=== PATIENT | female | born 1940 | race Caucasian/White ===

== ENCOUNTER → 2016-08-16 | Outpatient (CLI) | payer OTHER ==
[2016-08-16 12:24] LABS: BASO % 0.5 %; BASO ABS # 0.03 K/uL (0-0.2); COMPLETE YES; EOS % 2.1 %; HEMATOCRIT 41.3 % (37-47); LYMPH % 39.1 %; LYMPH ABS # 2.26 K/uL (1.2-3.4); MEAN CORPUSCULAR HEMOGLOBIN 32.5 pg (25-34); MEAN CORPUSCULAR HGB CONC 35.4 g/dl (32-36); MEAN PLATELET VOLUME 10.3 fL (7.4-10.4); MONO % 8.8 %; NEUT % 49.5 %; PLATELET COUNT 256 K/uL (130-400); RED BLOOD COUNT 4.49 M/uL (4.2-5.4); WHITE BLOOD COUNT 5.78 K/uL (4.8-10.8)
[2016-08-16 13:53] LABS: AST/SGOT 21 U/L (15-37); BLOOD UREA NITROGEN 21 mg/dl (7-18); BUN/CREATININE RATIO 21.7 (10-20); CALCIUM 10.2 mg/dl (8.5-10.1); CARBON DIOXIDE 31 mmol/L (21-32); CHLORIDE 106 mmol/L (98-107); CREATININE 0.95 mg/dl (0.60-1.20); GLUCOSE 88 mg/dl (70-99); POTASSIUM 4.6 mmol/L (3.5-5.1); SODIUM 142 mmol/L (136-145)
[2016-08-16 14:01] LABS: ALB/GLOB RATIO 1.1 (0.9-2); ALKALINE PHOSPHATASE 70 U/L (45-117); ALT/SGPT 28 U/L (12-78); CHOLESTEROL 168 mg/dl (0-200); CHOLESTEROL/HDL RATIO 2.8; HDL CHOLESTEROL 59 mg/dl; LDL CHOLESTEROL CALCULATED 69 mg/dl; TRIGLYCERIDES 198 mg/dl (0-150); VERY LOW DENSITY LIPOPROT CALC 40 mg/dl
== END | disposition home or self-care (01) ==
LOC: C.LABBFT 09:08
PROVIDERS: ATTEND Physician Assistant Medical
DX: R60.9 Edema, unspecified (principal); R41.3 Other amnesia

== ENCOUNTER → 2016-09-13 | Outpatient (CLI) | payer OTHER ==
[2016-09-13 18:08] LABS: ALT/SGPT 24 U/L (12-78); AST/SGOT 19 U/L (15-37); BLOOD UREA NITROGEN 22 mg/dl (7-18); BUN/CREATININE RATIO 25.4 (10-20); CARBON DIOXIDE 27 mmol/L (21-32); CHLORIDE 108 mmol/L (98-107); CREATININE 0.88 mg/dl (0.60-1.20); GLUCOSE 96 mg/dl (70-99); POTASSIUM 4.1 mmol/L (3.5-5.1); SODIUM 141 mmol/L (136-145)
[2016-09-13 18:10] LABS: ALB/GLOB RATIO 1.2 (0.9-2); ALKALINE PHOSPHATASE 67 U/L (45-117)
== END | disposition home or self-care (01) ==
LOC: C.LABBFT 11:41
PROVIDERS: ATTEND Physician Assistant Medical
DX: R79.9 Abnormal finding of blood chemistry, unspecified (principal)

== ENCOUNTER → 2017-11-21 | Outpatient (CLI) | payer OTHER ==
[2017-11-21 17:27] LABS: BASO % 0.5 %; BASO ABS # 0.03 K/uL (0-0.2); EOS % 2.3 %; EOS ABS # 0.14 K/uL (0-0.5); HEMATOCRIT 40.5 % (37-47); HEMOGLOBIN 13.9 g/dL (12.0-16.0); IG# 0.01 K/uL (0.00-0.02); LYMPH % 36.9 %; MEAN CELL VOLUME 91.4 fL (80-100); MEAN CORPUSCULAR HEMOGLOBIN 31.4 pg (25-34); MEAN CORPUSCULAR HGB CONC 34.3 g/dl (32-36); MEAN PLATELET VOLUME 10.1 fL (7.4-10.4); MONO % 9.2 %; MONO ABS # 0.55 K/uL (0.11-0.59); NEUT % 50.9 %; NEUT ABS # 3.04 K/uL (1.4-6.5); PLATELET COUNT 273 K/uL (130-400); RED CELL DISTRIBUTION WIDTH CV 12.9 % (11.5-14.5); RED CELL DISTRIBUTION WIDTH SD 43.3 fL (36.4-46.3); WHITE BLOOD COUNT 5.97 K/uL (4.8-10.8)
[2017-11-21 18:06] LABS: ALBUMIN 4.1 gm/dl (3.4-5.0); ALKALINE PHOSPHATASE 76 U/L (45-117); ALT/SGPT 29 U/L (12-78); AST/SGOT 22 U/L (15-37); BLOOD UREA NITROGEN 16 mg/dl (7-18); CALCIUM 9.2 mg/dl (8.5-10.1); CARBON DIOXIDE 30 mmol/L (21-32); CHOLESTEROL 141 mg/dl (0-200); CREATININE 0.96 mg/dl (0.60-1.20); GLUCOSE 85 mg/dl (70-99); LDL CHOLESTEROL CALCULATED 39 mg/dl; POTASSIUM 4.2 mmol/L (3.5-5.1); SODIUM 139 mmol/L (136-145); TOTAL PROTEIN 7.9 gm/dl (6.4-8.2)
== END | disposition home or self-care (01) ==
LOC: C.LABBFT 15:17
PROVIDERS: ATTEND Internal Medicine
DX: E78.5 Hyperlipidemia, unspecified (principal); L65.9 Nonscarring hair loss, unspecified

== ENCOUNTER 2023-12-16 15:55 | Inpatient (IN) ==
--- NOTE | 2023-12-16 17:28 | XRay Report ---
XR chest 1V not portable CLINICAL HISTORY: Chest pain, nonspecific COMPARISON STUDY: No previous studies for comparison. FINDINGS: Lung volumes are normal. There is no consolidation. 1.4 cm left suprahilar nodular density is present. Linear left basilar densities favor atelectasis or scarring. There is no pneumothorax or pleural effusion. Cardiac size is normal. Mediastinal contours are normal. There is no evidence for p ulmonary edema. IMPRESSION: 1. No acute cardiopulmonary findings. 2. 1.4 cm left suprahilar nodular density. This is likely artifactual. A pulmonary nodule could appea r similar. Nonemergent chest CT is recommended. ACT 112: Positive. There are findings on this exam that require communication between the performing entity and the patient following Patient Test Result Information Act ([place] Act 112) guidelines. Electronically signed by: Richmond Feliz M.D. 12/16/2023 5:25 PM
[2023-12-16 17:30] LABS: Basophils # (auto) 0.04 K/uL (0.00-0.20); Basophils % (auto) 0.6 %; Eosinophils % (auto) 1.5 %; Hematocrit (blood only) 38.9 % (37.0-47.0); Hemoglobin 13.7 g/dl (12.0-16.0); Immature Granulocytes # (auto) 0.02 K/uL (0.01-0.20); Immature Granulocytes % (auto) 0.3 %; Lymphocytes # (auto) 2.09 K/uL (1.20-3.40); Lymphocytes % (auto) 30.9 %; Mean Corpuscular Hemoglobin 31.6 pg (25.0-34.0); Mean Corpuscular Hgb Conc 35.2 g/dL (32.0-36.0); Mean Corpuscular Volume 89.6 fL (80.0-100.0); Mean Platelet Volume 9.4 fL (9.4-12.4); Monocytes # (auto) 1.03 K/uL (0.11-0.59); Monocytes % (auto) 15.2 %; Neutrophils # (auto) 3.49 K/uL (1.40-6.50); Neutrophils % (auto) 51.5 %; Platelet Count 280 K/uL (130-400); RDW Coefficient of Variation 12.1 % (11.5-14.5); RDW Standard Deviation 39.6 fL (36.4-46.3); Red Blood Count 4.34 M/uL (4.20-5.40); White Blood Count 6.77 K/ul (4.8-10.8)
[2023-12-16 17:34] LABS: Albumin Globulin Ratio 1.3 (0.9-2); Albumin Level 4.5 gm/dl (3.4-5.0); BUN Creatinine Ratio 22.4 (10-20); Bilirubin,Total 0.5 mg/dl (0.2-1.0); Calcium 10.2 mg/dl (8.6-10.3); Creatinine Clr Calc Pharmacy 40.5 ml/min; Est GFR (African American) 61.8 ml/min; Est GFR (Non-African American) 53.3 ml/min; Globulin 3.4 gm/dl (2.5-4.0); Total Protein 7.9 gm/dl (6.0-8.3)
[2023-12-16 17:45] LABS: Partial Thromboplastin Time 26 Seconds (21-31); Prothrombin Time 10.6 Seconds (9.0-12.0)
[2023-12-16 17:56] LABS: Adenovirus PCR Not Detected (NotDetected); Bordetella parapertussis PCR Not Detected (NotDetected); Bordetella pertussis PCR Not Detected (NotDetected); Chlamydia pneumoniae PCR Not Detected (NotDetected); Coronavirus 229E PCR Not Detected (NotDetected); Coronavirus CoV-2 (COVID19)PCR Not Detected (NotDetected); Coronavirus HKU1 PCR Not Detected (NotDetected); Coronavirus NL63 PCR Not Detected (NotDetected); Coronavirus OC43PCR Not Detected (NotDetected); Human Metapneumovirus PCR Not Detected (NotDetected); Influenza A PCR Not Detected (NotDetected); Influenza B PCR Not Detected (NotDetected); Mycoplasma pneumoniae PCR Not Detected (NotDetected); Parainfluenza Virus 1 PCR Not Detected (NotDetected); Parainfluenza Virus 2 PCR Not Detected (NotDetected); Parainfluenza Virus 3 PCR Not Detected (NotDetected); Parainfluenza Virus 4 PCR Not Detected (NotDetected); Respiratory Syncytial VirusPCR Not Detected (NotDetected); Rhinovirus/Enterovirus PCR Not Detected (NotDetected)
[2023-12-16 18:10] LABS: D Dimer 11270 ug/L FEU (0-500)
[2023-12-16] MEDS: OPTIRAY 320 125ml IV ONE (18:34)
--- NOTE | 2023-12-16 18:46 | CT Scan Report ---
CT OF THE HEAD WITHOUT CONTRAST CLINICAL HISTORY: Headache. COMPARISON STUDY: MRI of the brain November 02, 2021. TECHNIQUE: Helical axial images of the head were obtained without IV contrast. Automated exposure con trol was utilized for the study. A dose lowering technique was utilized adhering to the principles o f ALARA. FINDINGS: No acute intracranial hemorrhage, midline shift or mass effect is present. White matter hyp odensity suggests small vessel disease. There is mild atrophy. The ventricular system is unremarkable . The basal cisterns are patent. No extra-axial collections are present. There are no findings to sug gest acute dural sinus thrombosis or acute territorial infarct. No significant calvarial abnormalitie s are present. Visualized portions of the sinuses and mastoid air cells are clear. IMPRESSION: No acute intracranial findings. ACT 112: Negative or not required by law. Electronically signed by: Richmond Feliz M.D. 12/16/2023 6:44 PM
[2023-12-16] MEDS ORDERED: Heparin IV Adult Wt-Based Standard w/ INITIAL Bolus Protocol IV STA (18:47)
--- NOTE | 2023-12-16 18:55 | CT Scan Report ---
CT ANGIOGRAPHY OF THE CHEST, PULMONARY EMBOLUS PROTOCOL CLINICAL HISTORY: Elevated d-dimer. Evaluate for pulmonary embolus. COMPARISON STUDY: Chest radiograph performed earlier today. TECHNIQUE: Following IV administration of 118 mL of Optiray, helical axial images of the chest were o btained utilizing the pulmonary embolus protocol. Maximal intensity projections and sagittal and cor onal reformats were viewed on an independent 3D workstation. IV contrast was administered without co mplication. Automated exposure control was utilized for the study. A dose lowering technique was ut ilized adhering to the principles of ALARA. CT DOSE: 1371.66 mGy.cm FINDINGS: Numerous pulmonary emboli are noted, including a small saddle pulmonary embolus. Overall, embolus burden is moderate with multiple lobar, segmental and subsegmental pulmonary emboli. There is no definite CT evidence for right heart strain. No pericardial effusion. There is no thoracic lympha denopathy. A moderate sized hiatal hernia is present. No pulmonary infarct is present. Linear densiti es within the lungs represent atelectasis. There is no consolidation. No pneumothorax or pleural effu jose l is present. No acute fractures within the bony thorax are present. Extensive anterior aspect pamela nosis of the thoracic spine is incidentally noted. The possible left lung nodule on chest radiograph performed earlier today was artifactual. Visualized portions of the upper abdomen are unremarkable. IMPRESSION: 1. Numerous bilateral pulmonary emboli, including a small saddle pulmonary embolus. Overall, moderate embolus burden. No definite CT evidence for right heart strain. No pulmonary infarct. 2. No suspicious pulmonary nodules. The possible left lung nodule on chest radiograph was artifactual . 3. Moderate sized hiatal hernia. ACT 112: Negative or not required by law. Electronically signed by: Richmond Feliz M.D. 12/16/2023 6:53 PM
[2023-12-16] MEDS ORDERED: HEPARIN SOD (PORCINE) 1000 UNIT/ML IV ONE (19:03)
--- NOTE | 2023-12-16 19:38 | History & Physical Report ---
Date of Service December 16, 2023 Assessment & Plan (1) Acute saddle pulmonary embolism: Plan: ER discussed with ICU and declined ICU admission IV heparin standard dose with bolus TTE, BNP, troponin, US venous doppler b/l LE (2) History of DVT (deep vein thrombosis): Plan: 2019 suspected due to prolonged sitting with painting Plan VTE Prophylaxis - IV heparin Diet - regular Disposition - admit to PCU Admission and Anticipated Discharge Date Admission Date: December 16, 2023 History of Present Illness Chief Complaint: Chest pressure Primary Care Provider: Romina Palomo MD Carrie Whyte is an 83 year old female who presents to the ER with chest pressure. She reports symptoms started with a flu like illness starting approximately 2 weeks ago with whole body aches, headache and nausea. She was tested for COVID and it was negative. Started having chest pressure today which prompted her to come to the ER. She notes a constant chest pressure with intermittent "flick" sharp pain just left off the center of her sterum. No worse on exertion, inspiration, position. She denies any shortness of breath, palpitations, presyncope, diaphoresis. She notes a prior history of DVT in 2019 suspected from prolonged sitting while painting. She was treated with Xarelto but since this was her first event she was taken off Xarelto in July. Her mother and sister have both had DVT/PEs. She is unable to confirm her medications at this time. Allergies Allergy/AdvReac Type Severity Reaction Status Date / Time cephalexin [From Keflex] Allergy Hives Verified 08/02/23 09:56 Home Medications Medication Instructions Recorded Confirmed Type multivitamin 1 tab PO QAM 12/23/18 09/26/23 History omega-3 acid ethyl esters 1 gram 1 cap PO BID 02/01/19 09/26/23 History capsule timolol maleate 0.25 % eye drops 1 drops ophthalmic (eye) Q12H 02/01/19 09/26/23 History acetaminophen 650 mg 650 mg PO Q12H PRN Pain 04/03/19 09/26/23 History tablet,extended release (Tylenol Arthritis Pain) [employer] nutrition pack PO DAILY 10/16/21 09/26/23 History cholecalciferol (vitamin D3) 25 25 mcg PO DAILY #30 caps 10/23/21 09/26/23 Rx mcg (1,000 unit) capsule alendronate 70 mg tablet (Fosamax) 70 mg PO ONCE 7 days #12 tabs 01/25/23 09/26/23 Rx donepezil 10 mg tablet 10 mg PO DAILY #90 tabs 05/31/23 09/26/23 Rx aspirin 81 mg capsule 81 mg PO DAILY PRN 09/26/23 09/26/23 History omeprazole 20 mg capsule,delayed 20 mg PO DAILY PRN 09/26/23 History release Past Med/Surg History Problem List Acute saddle pulmonary embolism Degenerative arthritis of knee, bilateral Arthritis of right knee History of DVT (deep vein thrombosis) Osteoporosis Vitamin D deficiency Memory loss Urinary incontinence GERD (gastroesophageal reflux disease) Medicare annual wellness visit, initial MCI (mild cognitive impairment) Medical History History of benign ovarian tumor Osteoarthritis Positive colorectal cancer screening using Cologuard test TMJ click Glaucoma Seasonal depression History of rheumatic fever as a child History of TIA (transient ischemic attack) 2012, 2013 DVT (deep venous thrombosis) RLE - DX 01/2019 - on xarelto - pt is an artist, 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 Surgical History S/P cataract surgery History of breast biopsy History of tonsillectomy History of total abdominal hysterectomy and bilateral salpingo-oophorectomy History of esophagogastroduodenoscopy (EGD) History of cardiac radiofrequency ablation [facility]ACH[facility]CARDIA [place] [facility] [place] - DOES NOT FOLLOW W/ CARDIOLOGY Family History Brother Myocardial infarction Sister Deep vein thrombosis Mother Deep vein thrombosis Denies family history of Ovarian cancer Prostate cancer Breast cancer Lung cancer Colorectal cancer Social History Smoking Status: Never smoker Second Hand Exposure: No; Do You Dip or Chew Tobacco: No; Tobacco Cessation Education Requested by Patient: No Hx Alcohol Use: No Hx Substance Use: No Preferred Language: Mauritanian Communication Ability: Effective Visual Impairment: No Limitations Hearing Ability: Normal Pin Sticker Required: No Beliefs That Will Affect Care: None marital status: / Current Living Situation: Other Current Living Situation Comment: lives in an apartment at [facility] current occupational status: retired Other Information That Helps Us Care for You: No Feels Safe at Home: Yes Safety Concerns: Feels Safe At This Time Safety Concerns Comment: Lives at [facility] in [place] Childhood Exposure to Second-Hand Smoke: Yes Diet: regular caffeine: Yes Dental Care, Regularly: Yes Physical Activity Frequency: Does not Exercise Seatbelt Use: always Assistive Devices: Cane, Glasses and Walker Review of Systems Review of Systems: All systems reviewed & are unremarkable except as noted in HPI & below Physical Exam Constitutional: WD/WN, vitals as above ENMT: external ear and nose normal, oropharynx normal Respiratory: normal respiratory effort, lungs clear to auscultation Cardiovascular: RRR, no murmur, no edema Gastrointestinal (Abdomen): normal bowel sounds, soft, nontender, no hepatosplenomegaly Musculoskeletal: no cyanosis or clubbing, extremities motor strength 5/5 Skin: no rashes, warm and dry Neurologic: moves all extremities and awake; not confused Psychiatric: A+Ox3, euthymic affect Results & Data Results & Data Vital Signs (Past 12 Hours) Vital Signs Temp Pulse Pulse Resp BP BP Pulse Ox 12/16/23 19:00 91 H 22 137/85 97 12/16/23 18:02 91 H 12/16/23 17:51 88 17 96 12/16/23 17:51 96 H 14 154/85 H 97 12/16/23 15:58 36.5 C 120 H 16 132/84 97 O2 Del Method 12/16/23 19:00 Room Air 12/16/23 18:02 12/16/23 17:51 Room Air 12/16/23 17:51 Room Air 12/16/23 15:58 Room Air Laboratory Results Abnormal lab results 12/16/23 Range/Units 16:45 [place] # (Auto) 1.03 H (0.11-0.59) K/uL D-Dimer [id number] H* (0-500) ug/L FEU BUN/Creatinine Ratio 22.4 H (10-20) Diagnostic Findings CT OF THE HEAD WITHOUT CONTRAST CLINICAL HISTORY: Headache. COMPARISON STUDY: MRI of the brain November 02, 2021. TECHNIQUE: Helical axial images of the head were obtained without IV contrast. Automated exposure control was utilized for the study. A dose lowering technique was utilized adhering to the principles of ALARA. FINDINGS: No acute intracranial hemorrhage, midline shift or mass effect is present. White matter hypodensity suggests small vessel disease. There is mild atrophy. The ventricular system is unremarkable. The basal cisterns are patent. No extra-axial collections are present. There are no findings to suggest acute dural sinus thrombosis or acute territorial infarct. No significant calvarial abnormalities are present. Visualized portions of the sinuses and mastoid air cells are clear. IMPRESSION: No acute intracranial findings. CT ANGIOGRAPHY OF THE CHEST, PULMONARY EMBOLUS PROTOCOL CLINICAL HISTORY: Elevated d-dimer. Evaluate for pulmonary embolus. COMPARISON STUDY: Chest radiograph performed earlier today. TECHNIQUE: Following IV administration of 118 mL of Optiray, helical axial images of the chest were obtained utilizing the pulmonary embolus protocol. Maximal intensity projections and sagittal and coronal reformats were viewed on an independent 3D workstation. IV contrast was administered without complication. Automated exposure control was utilized for the study. A dose lowering technique was utilized adhering to the principles of ALARA. CT DOSE: 1371.66 mGy.cm FINDINGS: Numerous pulmonary emboli are noted, including a small saddle pulmonary embolus. Overall, embolus burden is moderate with multiple lobar, segmental and subsegmental pulmonary emboli. There is no definite CT evidence for right heart strain. No pericardial effusion. There is no thoracic lymphadenopathy. A moderate sized hiatal hernia is present. No pulmonary infarct is present. Linear densities within the lungs represent atelectasis. There is no consolidation. No pneumothorax or pleural effusion is present. No acute fractures within the bony thorax are present. Extensive anterior aspect stenosis of the thoracic spine is incidentally noted. The possible left lung nodule on chest radiograph performed earlier today was artifactual. Visualized portions of the upper abdomen are unremarkable. IMPRESSION: 1. Numerous bilateral pulmonary emboli, including a small saddle pulmonary embolus. Overall, moderate embolus burden. No definite CT evidence for right heart strain. No pulmonary infarct. 2. No suspicious pulmonary nodules. The possible left lung nodule on chest radiograph was artifactual. 3. Moderate sized hiatal hernia. Medications Administered ER Medications Given: Heparin IV bolus and drip ECG Rate (beats per minute): 102 Rhythm: sinus tachycardia Findings: no acute ischemic change Comparison ECG Date: no prior available Code Status & VTE Plan Code Status Full VTE Prophylaxis Plan VTE Prophylaxis will be ordered: Yes PG Care Time/CCT Total # of Minutes Spent Total Time Spent with Patient: Total time spent is greater than 50% in coordination of care (as documented) at patient's floor/unit and/or counseling patient: Coding Level of Care Code 33178 INT INP/OBS CARE MIN Diagnoses Acute saddle pulmonary embolism I26.92 History of DVT (deep vein thrombosis) Z86.718
[2023-12-16] MEDS: HEPARIN SODIUM/DEXTROSE 25,000 UNITS/500 ML BAG IV SCH (20:17)
[2023-12-16] MEDS: HEPARIN SOD (PORCINE) 1000 UNIT/ML IV ONE (20:17)
--- NOTE | 2023-12-16 23:10 | Emergency Department Note ---
Impression & Plan Acute saddle pulmonary embolism ED Provider Note CHIEF COMPLAINT: Left-sided chest discomfort, flulike symptoms HISTORY OF PRESENT ILLNESS: This 83-year-old female patient past medical history of GERD, mild cognitive impairment, DVT presents to the emergency department with complaints of flulike illness. Patient states she had a headache, some sinus pressure and bodyaches. She believes that the body aches have largely resolved and the headache is improving. The patient complains of some left-sided chest discomfort and short "zings." She denies any significant shortness of breath or fevers. She states she was tested for COVID 2 days ago at the [facility] and was tested negative. She has not had any vomiting or diarrhea. She denies any urinary symptoms. REVIEW OF SYSTEMS: A review of systems was performed with positives and pertinent negatives listed in the history of present illness. 10 systems were reviewed and are otherwise negative. ALLERGIES: see below MEDICATIONS: see below PMH: see below SOCIAL HISTORY: see below DDx: Viral illness such as COVID or UTI, pneumonia, intracranial hemorrhage, intracranial mass, dehydration, electrolyte abnormality, PE among others. PHYSICAL EXAM: Vital signs reviewed. General: Well-appearing 83-year-old female, in no significant distress. HEENT: No scleral icterus, PERRLA, neck supple. moist mucous membranes. Cardiovascular: Regular rate and rhythm, no extra sounds. Systolic ejection murmur. Pulmonary: Clear to auscultation bilaterally, normal work of breathing. Abdomen: Soft, nontender, nondistended, positive bowel sounds. Musculoskeletal: Atraumatic, no peripheral edema. Nontender to palpation over the anterior chest wall. Neurologic: Patient awake alert and oriented x 3, speech is clear Skin: Warm, dry, no rash EMERGENCY DEPARTMENT COURSE/MDM: This patient was evaluated and appeared to be in no significant distress. IV access was obtained and laboratory work was drawn. The patient was placed on the radiation monitor and noted to be in a normal sinus rhythm. Heart rate triage was slightly elevated has improved rest. Laboratory work has been ordered at triage, results are significant for elevated D dimer. Chest x-ray is significant for 1.4 cm left suprahilar nodular density. CT and the chest was performed and reveals numerous bilateral pulmonary and including a small saddle PE. No evidence for right heart strain. Heparin was initiated. US BLE was performed and significant for bilateral DVT, left greater than right. The case was discussed with the hospital service who requested consultation with the critical care team. ANJELICA Juares was contacted as first call, who was made aware of the patient's case and felt PCU level was appropriate given the pt's stability and minimal symptoms. Hospital service was made aware of the recommendation and Dr. Boland has accepted the pt for admission. IV heparin gtt has been initiated, pt updated on the plan and agreed. MONITORING: An order for cardiac monitoring was placed and the patient is noted to be in a normal sinus rhythm at 94 beats per minute. RADIOLOGY: chest x-ray to my interpretation reveals no evidence of focal lung consolidation or failure. Otherwise see radiology's over read. CT scan of the chest: IMPRESSION: 1. Numerous bilateral pulmonary emboli, including a small saddle pulmonary embolus. Overall, moderate embolus burden. No definite CT evidence for right heart strain. No pulmonary infarct. 2. No suspicious pulmonary nodules. The possible left lung nodule on chest radiograph was artifactual. 3. Moderate sized hiatal hernia. CT scan of the head per radiology reveals no evidence of acute intracranial abnormality. EKG: to my interpretation reveals a sinus tachycardia at 102 bpm. QTc of 427. Normal ST segments. No PVC, no PAC. DISPOSITION: Admission I have personally spent 40 minutes of critical care time in the direct management of this patient. This was a life/limb threatening event. This 40 minutes is in excess of all separately billable procedures. Past Med/Surg History Problem List (Updated 12/22/23 @ 05:38 by Mari Ornelas MD) Acute right flank pain (Acute) Embolism, pulmonary with infarction (Acute) Acute saddle pulmonary embolism (Acute) Degenerative arthritis of knee, bilateral Arthritis of right knee History of DVT (deep vein thrombosis) Osteoporosis Vitamin D deficiency Memory loss Urinary incontinence GERD (gastroesophageal reflux disease) Medicare annual wellness visit, initial MCI (mild cognitive impairment) Medical History History of benign ovarian tumor Osteoarthritis Positive colorectal cancer screening using Cologuard test TMJ click Glaucoma Seasonal depression History of rheumatic fever as a child History of TIA (transient ischemic attack) 2012, 2013 DVT (deep venous thrombosis) RLE - DX 01/2019 - on xarelto - pt is an artist, 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 Surgical History S/P cataract surgery History of breast biopsy History of tonsillectomy History of total abdominal hysterectomy and bilateral salpingo-oophorectomy History of esophagogastroduodenoscopy (EGD) History of cardiac radiofrequency ablation TACHYCARDIA - [facility] [place] - 2000 - DOES NOT FOLLOW W/ CARDIOLOGY Family History Brother Myocardial infarction Sister Deep vein thrombosis Mother Deep vein thrombosis Denies family history of Ovarian cancer Prostate cancer Breast cancer Lung cancer Colorectal cancer Social History Smoking Status: Never smoker Second Hand Exposure: No; Do You Dip or Chew Tobacco: No; Hx Alcohol Use: No Hx Substance Use: No Preferred Language: Cambodian Communication Ability: Effective Visual Impairment: No Limitations Hearing Ability: Normal Track Manager Required: No Beliefs That Will Affect Care: None marital status: / Current Living Situation: Other Current Living Situation Comment: lives in an apartment at [facility] current occupational status: retired Feels Safe at Home: Yes Safety Concerns Comment: Lives at [facility] in [place] Childhood Exposure to Second-Hand Smoke: Yes Diet: regular caffeine: Yes Dental Care, Regularly: Yes Physical Activity Frequency: Does not Exercise Seatbelt Use: always Assistive Devices: Cane and Walker Allergies Allergies Allergy/AdvReac Type Severity Reaction Status Date / Time cephalexin [From Keflex] Allergy Intermediate Hives Verified 12/19/23 19:16 Home Meds Home Medications Medication Instructions Recorded Confirmed multivitamin 1 tab PO QAM 12/23/18 12/19/23 omega-3 acid ethyl esters 1 gram 1 cap PO BID 02/01/19 12/19/23 capsule timolol maleate 0.25 % eye drops 1 drops ophthalmic (eye) Q12H 02/01/19 12/19/23 acetaminophen 650 mg 650 mg PO Q12H PRN Pain 04/03/19 12/19/23 tablet,extended release (Tylenol Arthritis Pain) [employer] nutrition pack 1 dose PO DAILY 10/16/21 12/19/23 aspirin 81 mg capsule 81 mg PO DAILY PRN NEEDED PER PT 09/26/23 12/19/23 omeprazole 20 mg capsule,delayed 20 mg PO DAILY 09/26/23 12/19/23 release Previous Rx's Medication Instructions Recorded cholecalciferol (vitamin D3) 25 25 mcg PO DAILY #30 caps 10/23/21 mcg (1,000 unit) capsule donepezil 10 mg tablet 10 mg PO DAILY #90 tabs 05/31/23 apixaban 5 mg tablet (Eliquis) 5 mg PO UD #60 tabs 12/17/23 Results & Data (ED) Vital Signs Vital Signs - 24 hr 12/16/23 15:58 12/16/23 17:51 12/16/23 17:51 Temperature 36.5 C Temperature Source Temporal Artery Scan Pulse Rate 120 H 88 Pulse Rate [Apical] 96 H Pulse Rate from SpO2 Sensor Respiratory Rate 16 14 17 Respiratory Effort / Characteristics Non-Labored Spontaneous Non-Labored Spontaneous Respiratory Depth Normal Normal Respiratory Pattern Regular Blood Pressure 132/84 Blood Pressure [Right Arm] 154/85 H Blood Pressure Mean 100 Blood Pressure Mean [Right Arm] 108 Blood Pressure Position [Right Arm] Pulse Oximetry 97 97 96 Oxygen Delivery Method Room Air Room Air Room Air Sepsis Recent Fever Within 48 Hours No Sepsis New/Unexplained Change in Mental Status No Sepsis Action Taken by Nursing No Action Required 12/16/23 18:00 12/16/23 18:00 12/16/23 18:02 Temperature Temperature Source Pulse Rate 91 H Pulse Rate [Apical] Pulse Rate from SpO2 Sensor Respiratory Rate Respiratory Effort / Characteristics Respiratory Depth Respiratory Pattern Blood Pressure 136/78 136/78 Blood Pressure [Right Arm] Blood Pressure Mean 92 92 Blood Pressure Mean [Right Arm] Blood Pressure Position [Right Arm] Pulse Oximetry Oxygen Delivery Method Sepsis Recent Fever Within 48 Hours Sepsis New/Unexplained Change in Mental Status Sepsis Action Taken by Nursing 12/16/23 18:03 12/16/23 18:15 12/16/23 18:24 Temperature Temperature Source Pulse Rate 94 H 92 H 94 H Pulse Rate [Apical] Pulse Rate from SpO2 Sensor 94 H 94 H Respiratory Rate 21 24 25 H Respiratory Effort / Characteristics Respiratory Depth Respiratory Pattern Blood Pressure Blood Pressure [Right Arm] Blood Pressure Mean Blood Pressure Mean [Right Arm] Blood Pressure Position [Right Arm] Pulse Oximetry 97 97 Oxygen Delivery Method Sepsis Recent Fever Within 48 Hours Sepsis New/Unexplained Change in Mental Status Sepsis Action Taken by Nursing 12/16/23 18:27 12/16/23 18:40 12/16/23 18:40 Temperature Temperature Source Pulse Rate 92 H Pulse Rate [Apical] Pulse Rate from SpO2 Sensor Respiratory Rate 22 Respiratory Effort / Characteristics Respiratory Depth Respiratory Pattern Blood Pressure 137/73 137/73 Blood Pressure [Right Arm] Blood Pressure Mean 87 87 Blood Pressure Mean [Right Arm] Blood Pressure Position [Right Arm] Pulse Oximetry Oxygen Delivery Method Sepsis Recent Fever Within 48 Hours Sepsis New/Unexplained Change in Mental Status Sepsis Action Taken by Nursing 12/16/23 18:40 12/16/23 18:40 12/16/23 18:40 Temperature Temperature Source Pulse Rate Pulse Rate [Apical] Pulse Rate from SpO2 Sensor Respiratory Rate Respiratory Effort / Characteristics Respiratory Depth Respiratory Pattern Blood Pressure 137/73 137/73 137/73 Blood Pressure [Right Arm] Blood Pressure Mean 87 87 87 Blood Pressure Mean [Right Arm] Blood Pressure Position [Right Arm] Pulse Oximetry Oxygen Delivery Method Sepsis Recent Fever Within 48 Hours Sepsis New/Unexplained Change in Mental Status Sepsis Action Taken by Nursing 12/16/23 18:42 12/16/23 18:51 12/16/23 19:00 Temperature Temperature Source Pulse Rate 89 82 Pulse Rate [Apical] 91 H Pulse Rate from SpO2 Sensor 89 82 Respiratory Rate 19 14 22 Respiratory Effort / Characteristics Non-Labored Spontaneous Respiratory Depth Normal Respiratory Pattern Regular Blood Pressure Blood Pressure [Right Arm] 137/85 Blood Pressure Mean Blood Pressure Mean [Right Arm] 102 Blood Pressure Position [Right Arm] Semi-fowlers Pulse Oximetry 97 96 97 Oxygen Delivery Method Room Air Sepsis Recent Fever Within 48 Hours Sepsis New/Unexplained Change in Mental Status Sepsis Action Taken by Nursing 12/16/23 19:15 Temperature Temperature Source Pulse Rate 86 Pulse Rate [Apical] Pulse Rate from SpO2 Sensor 85 Respiratory Rate 13 Respiratory Effort / Characteristics Respiratory Depth Respiratory Pattern Blood Pressure Blood Pressure [Right Arm] Blood Pressure Mean Blood Pressure Mean [Right Arm] Blood Pressure Position [Right Arm] Pulse Oximetry 99 Oxygen Delivery Method Sepsis Recent Fever Within 48 Hours Sepsis New/Unexplained Change in Mental Status Sepsis Action Taken by Custodial Medications Current Medication List: was personally reviewed by me Laboratory Data Attestation: I reviewed the patient's lab results. 12/18/23 06:13 12/18/23 06:13 Lab Results 12/16/23 12/16/23 Range/Units 16:45 19:36 WBC 6.77 (4.8-10.8) K/ul RBC 4.34 (4.20-5.40) M/uL Hgb 13.7 (12.0-16.0) g/dl Hct 38.9 (37.0-47.0) % MCV 89.6 (80.0-100.0) fL MCH 31.6 (25.0-34.0) pg MCHC 35.2 (32.0-36.0) g/dL RDW Std Deviation 39.6 (36.4-46.3) fL RDW Coeff of Dimitry 12.1 (11.5-14.5) % Plt Count 280 (130-400) K/uL MPV 9.4 (9.4-12.4) fL Immature Gran % (Auto) 0.3 % Neut % (Auto) 51.5 % Lymph % (Auto) 30.9 % Wells % (Auto) 15.2 % Eos % (Auto) 1.5 % Baso % (Auto) 0.6 % Neut # (Auto) 3.49 (1.40-6.50) K/uL Lymph # (Auto) 2.09 (1.20-3.40) K/uL Wells # (Auto) 1.03 H (0.11-0.59) K/uL Eos # (Auto) 0.10 (0.00-0.50) K/uL Baso # (Auto) 0.04 (0.00-0.20) K/uL Immature Gran # (Auto) 0.02 (0.01-0.20) K/uL PT 10.6 (9.0-12.0) Seconds INR 1.0 (0.9-1.1) APTT 26 (21-31) Seconds PTT Ratio 1.0 D-Dimer 43965 H* (0-500) ug/L FEU Sodium 139 (136-145) mmol/L Potassium 4.0 (3.5-5.1) mmol/L Chloride 101 (98-107) mmol/L Carbon Dioxide 28 (21-32) mmol/L Anion Gap 10 (3-11) BUN 22 (6-23) mg/dl Creatinine 0.98 (0.6-1.2) mg/dl Est Cr Clr Drug Dosing 40.5 ml/min Est GFR ( Amer) 61.8 ml/min Est GFR (Non-Af Amer) 53.3 ml/min BUN/Creatinine Ratio 22.4 H (10-20) Glucose 94 (70-99(Fasting)) mg/dl Calcium 10.2 (8.6-10.3) mg/dl Total Bilirubin 0.5 (0.2-1.0) mg/dl AST 21 (13-39) U/L ALT 14 (7-52) U/L Alkaline Phosphatase 71 (34-104) U/L Troponin I High Sens 6.0 6.6 (0-14) pg/ml Total Protein 7.9 (6.0-8.3) gm/dl Albumin 4.5 (3.4-5.0) gm/dl Globulin 3.4 (2.5-4.0) gm/dl Albumin/Globulin Ratio 1.3 (0.9-2) Adenovirus (PCR) Not Detected (NotDetected) B. pertussis DNA (PCR) Not Detected (NotDetected) B.parapertussis DNA PCR Not Detected (NotDetected) Lyme Disease Screen Negative (Negative) C. pneumoniae DNA (PCR) Not Detected (NotDetected) Coronavirus OC43 (PCR) Not Detected (NotDetected) Coronavirus HKU1 (PCR) Not Detected (NotDetected) Coronavirus 229E (PCR) Not Detected (NotDetected) SARS-CoV-2 (PCR) Not Detected (NotDetected) Coronavirus NL63 (PCR) Not Detected (NotDetected) Human Metapneumovir PCR Not Detected (NotDetected) Influenza Type A (PCR) Not Detected (NotDetected) Influenza Type B (PCR) Not Detected (NotDetected) M. pneumoniae (PCR) Not Detected (NotDetected) Parainfluenza 1 (PCR) Not Detected (NotDetected) Parainfluenza 2 (PCR) Not Detected (NotDetected) Parainfluenza 3 (PCR) Not Detected (NotDetected) Parainfluenza 4 (PCR) Not Detected (NotDetected) RSV (PCR) Not Detected (NotDetected) Entero/Rhino (PCR) Not Detected (NotDetected) Administered Medications Discontinued Medications Apixaban (Apixaban 5 Mg Tablet) 10 mg PO BID [facility] Stop: 12/24/23 09:01 Last Admin: 12/18/23 08:48 Dose: 10 mg Documented By: Admin: 12/17/23 20:15 Dose: 10 mg Documented By: NIKOS Calcium Carbonate (Calcium Carbonate 500 Mg Chewable Tab) 1,500 mg PO Q3H PRN PRN Reason: Indigestion Stop: 01/16/24 20:38 Last Admin: 12/17/23 20:58 Dose: 1,500 mg Documented By: NIKOS Donepezil HCl (Donepezil Hcl 10 Mg Tab) 10 mg PO DAILY [facility] Stop: 01/16/24 08:59 Last Admin: 12/18/23 08:48 Dose: 10 mg Documented By: Admin: 12/17/23 09:40 Dose: 10 mg Documented By: LIZZY Heparin Sodium (Porcine) (Heparin Sod (Porcine) 1000 Unit/Ml) 5,000 units IV NOW ONE Stop: 12/16/23 19:46 Last Admin: 12/16/23 20:17 Dose: 5,000 units Documented By: CEE Co-signed By: ZULEYKA Heparin Sodium/Dextrose (Heparin Sodium/Dextrose) 25,000 units in 500 mls @ 0 mls/hr IV .Q0M [facility]; Protocol Stop: 01/15/24 19:14 Last Titration: 12/17/23 20:17 Dose: Infused Documented By: NIKOS Co-signed By: ALMOND BLANCHER OPERATOR Titration: 12/17/23 19:18 Dose: 750 units/hr, 15 mls/hr Documented By: LIZZY Co-signed By: HDC Titration: 12/17/23 16:34 Dose: 750 units/hr, 15 mls/hr Documented By: LIZZY Co-signed By: PERRY Admin: 12/17/23 09:43 Dose: 750 units/hr, 15 mls/hr Documented By: LIZZY Co-signed By: CMP Titration: 12/17/23 08:37 Dose: Infused Documented By: LIZZY Co-signed By: CMP Titration: 12/17/23 08:10 Dose: 750 units/hr, 15 mls/hr Documented By: LIZZY Co-signed By: CMP Titration: 12/17/23 04:15 Dose: 0 units/hr, 0 mls/hr Documented By: LAURA Co-signed By: MALISSA Admin: 12/16/23 20:17 Dose: 1,050 units/hr, 21 mls/hr Documented By: CEE Co-signed By: ZULEYKA Ioversol (Optiray 320 125ml) 118 ml IV ONCE ONE Stop: 12/16/23 18:35 Last Admin: 12/16/23 18:34 Dose: 118 ml Documented By: ROSANA Timolol Maleate (Timolol Maleate 0.25% Op Soln 5 Ml Btl) 1 drops OP Q12H ANNA Stop: 01/16/24 08:59 Last Admin: 12/18/23 08:48 Dose: 1 drops Documented By: Admin: 12/17/23 20:15 Dose: 1 drops Documented By: Admin: 12/17/23 09:40 Dose: 1 drops Documented By: LIZZY Vitamin D (Cholecalciferol 25 Mcg (1000 Units) Tab) 25 mcg PO DAILY ANNA Stop: 01/16/24 08:59 Last Admin: 12/18/23 08:48 Dose: 25 mcg Documented By: Admin: 12/17/23 09:40 Dose: 25 mcg Documented By: LIZZY Imaging Data Radiologist's Impression: Chest X-Ray 12/16/23 16:04 XR chest 1V not portable CLINICAL HISTORY: Chest pain, nonspecific COMPARISON STUDY: No previous studies for comparison. FINDINGS: Lung volumes are normal. There is no consolidation. 1.4 cm left suprahilar nodular density is present. Linear left basilar densities favor atelectasis or scarring. There is no pneumothorax or pleural effusion. Cardiac size is normal. Mediastinal contours are normal. There is no evidence for pulmonary edema. IMPRESSION: 1. No acute cardiopulmonary findings. 2. 1.4 cm left suprahilar nodular density. This is likely artifactual. A pulmonary nodule could appear similar. Nonemergent chest CT is recommended. ACT 112: Positive. There are findings on this exam that require communication between the performing entity and the patient following Patient Test Result Information Act ([place] Act 112) guidelines. Electronically signed by: Richmond Feliz M.D. 12/16/2023 5:[address] 12/16/23 18:04 CT OF THE HEAD WITHOUT CONTRAST CLINICAL HISTORY: Headache. COMPARISON STUDY: MRI of the brain November 02, 2021. TECHNIQUE: Helical axial images of the head were obtained without IV contrast. Automated exposure control was utilized for the study. A dose lowering technique was utilized adhering to the principles of ALARA. FINDINGS: No acute intracranial hemorrhage, midline shift or mass effect is present. White matter hypodensity suggests small vessel disease. There is mild atrophy. The ventricular system is unremarkable. The basal cisterns are patent. No extra-axial collections are present. There are no findings to suggest acute dural sinus thrombosis or acute territorial infarct. No significant calvarial abnormalities are present. Visualized portions of the sinuses and mastoid air cells are clear. IMPRESSION: No acute intracranial findings. ACT 112: Negative or not required by law. Electronically signed by: Richmond Feliz M.D. 12/16/2023 6:44 PM Chest CTA 12/16/23 18:13 CT ANGIOGRAPHY OF THE CHEST, PULMONARY EMBOLUS PROTOCOL CLINICAL HISTORY: Elevated d-dimer. Evaluate for pulmonary embolus. COMPARISON STUDY: Chest radiograph performed earlier today. TECHNIQUE: Following IV administration of 118 mL of Optiray, helical axial images of the chest were obtained utilizing the pulmonary embolus protocol. Maximal intensity projections and sagittal and coronal reformats were viewed on an independent 3D workstation. IV contrast was administered without complication. Automated exposure control was utilized for the study. A dose lowering technique was utilized adhering to the principles of ALARA. CT DOSE: 1371.66 mGy.cm FINDINGS: Numerous pulmonary emboli are noted, including a small saddle pulmonary embolus. Overall, embolus burden is moderate with multiple lobar, segmental and subsegmental pulmonary emboli. There is no definite CT evidence for right heart strain. No pericardial effusion. There is no thoracic lymphadenopathy. A moderate sized hiatal hernia is present. No pulmonary infarct is present. Linear densities within the lungs represent atelectasis. There is no consolidation. No pneumothorax or pleural effusion is present. No acute fractures within the bony thorax are present. Extensive anterior aspect stenosis of the thoracic spine is incidentally noted. The possible left lung nodule on chest radiograph performed earlier today was artifactual. Visualized portions of the upper abdomen are unremarkable. IMPRESSION: 1. Numerous bilateral pulmonary emboli, including a small saddle pulmonary embolus. Overall, moderate embolus burden. No definite CT evidence for right heart strain. No pulmonary infarct. 2. No suspicious pulmonary nodules. The possible left lung nodule on chest radiograph was artifactual. 3. Moderate sized hiatal hernia. ACT 112: Negative or not required by law. Electronically signed by: Richmond Feliz M.D. 12/16/2023 6:53 PM Discharge Plan Visit Data Chief Complaint: Referred by Doctor Stated Complaint: REF BY , ACHES, HEADACHE, CHEST TIGHTNESS & PAIN ED Provider: Mari Ornelas Discharge Problem: Acute saddle pulmonary embolism Patient Disposition: Admitted As Inpatient Discharge Instructions Interventions: ED Discharge Assessment Last Done: 12/17/23 00:01
[2023-12-17 03:16] LABS: Basophils # (auto) 0.05 K/uL (0.00-0.20); Basophils % (auto) 0.7 %; Eosinophils # (auto) 0.11 K/uL (0.00-0.50); Eosinophils % (auto) 1.6 %; Hematocrit (blood only) 33.9 % (37.0-47.0); Hemoglobin 12.1 g/dl (12.0-16.0); Immature Granulocytes # (auto) 0.01 K/uL (0.01-0.20); Immature Granulocytes % (auto) 0.1 %; Lymphocytes # (auto) 2.72 K/uL (1.20-3.40); Lymphocytes % (auto) 38.9 %; Mean Corpuscular Hemoglobin 31.6 pg (25.0-34.0); Mean Corpuscular Hgb Conc 35.7 g/dL (32.0-36.0); Mean Corpuscular Volume 88.5 fL (80.0-100.0); Mean Platelet Volume 9.1 fL (9.4-12.4); Monocytes # (auto) 0.84 K/uL (0.11-0.59); Neutrophils # (auto) 3.26 K/uL (1.40-6.50); Neutrophils % (auto) 46.7 %; Platelet Count 244 K/uL (130-400); RDW Standard Deviation 38.5 fL (36.4-46.3); Red Blood Count 3.83 M/uL (4.20-5.40); White Blood Count 6.99 K/ul (4.8-10.8)
[2023-12-17 03:43] LABS: BUN Creatinine Ratio 22.6 (10-20); Creatinine Clr Calc Pharmacy 42.6 ml/min; Est GFR (African American) 65.9 ml/min; Est GFR (Non-African American) 56.8 ml/min; Potassium 3.8 mmol/L (3.5-5.1)
[2023-12-17 04:12] LABS: ANTI-Xa, UFH(UnfractionatedHep 1.24 IU/ml (0.3-0.7)
[2023-12-17 05:28] LABS: ANTI-Xa, UFH(UnfractionatedHep 0.95 IU/ml (0.3-0.7)
--- NOTE | 2023-12-17 07:54 | Hospitalist Progress Note ---
Date of Service December 17, 2023 Assessment & Plan (1) Acute saddle pulmonary embolism: Plan: ER discussed with ICU and declined ICU admission IV heparin standard dose with bolus-> [facility], normal EF, normal right ventrical size pressures and function Mildly dialated Aortic root, may benefit from follow up US venous doppler b/l LE, L left DVT present, small Right DVT present (2) History of DVT (deep vein thrombosis): Plan: 2019 suspected due to prolonged sitting with painting. now with recurrent DVT's does have family history but pt herself without VTE up until 2019 Plan Diet - regular Admission and Anticipated Discharge Date Admission Date: December 16, 2023 Subjective pt is stable without complaints, no further chest pains Physical Exam Physical Exam: cardiac exam is regular lungs are clear Results & Data Results & Data Vital Signs (Past 12 Hours) Vital Signs Temp Pulse Pulse Resp BP Pulse Ox O2 Del Method 12/17/23 03:09 98.1 F 75 18 144/78 H 94 Room Air 12/16/23 21:59 97 H 12/16/23 21:36 98.2 F 84 21 123/84 98 Room Air 12/16/23 21:00 98.2 F 84 21 123/84 98 Room Air 12/16/23 20:33 70 20 12/16/23 20:21 68 14 Laboratory Results reviewed cbc review chemistry updated daughter on phone PG Care Time/CCT Total # of Minutes Spent Total Time Spent with Patient: Total time spent is greater than 50% in coordination of care (as documented) at patient's floor/unit and/or counseling patient: Coding Level of Care Code 89008 SUB INP/OBS CARE 3/50MIN Diagnoses Acute saddle pulmonary embolism I26.92 History of DVT (deep vein thrombosis) Z86.718
[2023-12-17 07:57] LABS: ANTI-Xa, UFH(UnfractionatedHep 0.24 IU/ml (0.3-0.7)
--- NOTE | 2023-12-17 09:27 | Ultrasound Report ---
BILATERAL LOWER EXTREMITY VENOUS DOPPLER CLINICAL HISTORY: DVT/PE COMPARISON STUDY: Right lower extremity venous Doppler ultrasound May 20, 2019. TECHNIQUE: Sonography of the deep venous system of the bilateral lower extremities was performed. Co mpression and augmentation were evaluated. FINDINGS: There is no deep venous thrombus within the right common femoral, superficial femoral or po pliteal veins. There is deep venous thrombus within the right posterior tibial vein. There is deep ve nous thrombus within the left superficial femoral, popliteal, posterior tibial, peroneal and anterior tibial veins. IMPRESSION: Deep venous thrombus within the left superficial femoral, popliteal, posterior tibial, pe roneal and anterior tibial veins and the right posterior tibial vein. ACT 112: Negative or not required by law. Electronically signed by: Richmond Feliz M.D. 12/17/2023 9:26 AM
[2023-12-17] MEDS: CHOLECALCIFEROL 25 MCG (1000 UNITS) TAB PO SCH (09:40)
[2023-12-17] MEDS: DONEPEZIL HCL 10 MG TAB PO SCH (09:40)
[2023-12-17] MEDS: TIMOLOL MALEATE 0.25% OP SOLN 5 ML BTL OP SCH (09:40)
--- NOTE | 2023-12-17 12:06 | XCELERA ---
[id number] \\[id number]
[2023-12-17 16:04] LABS: ANTI-Xa, UFH(UnfractionatedHep 0.39 IU/ml (0.3-0.7)
[2023-12-17] MEDS: APIXABAN 5 MG TABLET PO SCH (20:15)
[2023-12-17] MEDS: CALCIUM CARBONATE 500 MG CHEWABLE TAB PO PRN (20:58)
--- NOTE | 2023-12-18 06:07 | Electrocardiogram Report ---
Test Reason : Blood Pressure : */* mmHG Vent. Rate : 102 BPM Atrial Rate : 102 BPM P-R Int : 208 ms QRS Dur : 70 ms QT Int : 328 ms P-R-T Axes : 63 -1 31 degrees QTcB Int : 427 ms Sinus tachycardia with 1st degree A-V block Otherwise normal ECG When compared with ECG of 18-Nov-1995 15:19, OR interval has increased Confirmed by Tray Ureña ([id number]) on 12/18/2023 6:07:04 AM Referred By: Romina Palomo Confirmed By: Tray Ureña
[2023-12-18 06:46] LABS: Hematocrit (blood only) 32.4 % (37.0-47.0); Hemoglobin 11.6 g/dl (12.0-16.0); Mean Corpuscular Hemoglobin 31.6 pg (25.0-34.0); Mean Corpuscular Hgb Conc 35.8 g/dL (32.0-36.0); Mean Corpuscular Volume 88.3 fL (80.0-100.0); Mean Platelet Volume 9.2 fL (9.4-12.4); Platelet Count 271 K/uL (130-400); RDW Coefficient of Variation 12.1 % (11.5-14.5); RDW Standard Deviation 39.2 fL (36.4-46.3); Red Blood Count 3.67 M/uL (4.20-5.40); White Blood Count 6.06 K/ul (4.8-10.8)
[2023-12-18 07:19] VITALS: BP 129/71; PULSE 61; RESP 17; TEMP 97.9; O2SAT 95
[2023-12-18 07:30] LABS: BUN Creatinine Ratio 17.5 (10-20); Calcium 9.1 mg/dl (8.6-10.3); Creatinine Clr Calc Pharmacy 49.7 ml/min; Est GFR (Non-African American) 68.2 ml/min; Potassium 4.1 mmol/L (3.5-5.1)
--- NOTE | 2023-12-18 19:56 | Discharge Summary ---
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 She reports symptoms started with a flu like illness starting approximately 2 weeks ago with whole body aches, headache and nausea. She was tested for COVID and it was negative. Started having chest pressure today which prompted her to come to the ER. She notes a constant chest pressure with intermittent "flick" sharp pain just left off the center of her sterum. No worse on exertion, inspiration, position. She denies any shortness of breath, palpitations, presyncope, diaphoresis. She notes a prior history of DVT in 2018 suspected from prolonged sitting while painting. She was treated with Xarelto but since this was her first event she was taken off Xarelto in July. Her mother and sister have both had DVT/PEs. She is unable to confirm her medications at this time. Discharge Exam cardiac exam is regular lungs are clear Discharge Plan Discharge Items Patient Disposition: Home - Self-Care Reason For Visit: SADDLE PULMONARY EMBOLISM Discharge Diagnosis: Pulmonary embolism Deep vein thrombosis Activity: Resume your previous activity Non-emergency contact: Primary Care Provider Call non-emergency contact if: your symptoms worsen Follow-up/Referrals: Romina Palomo MD [Primary Care Provider] - 12/25/23 2:00 pm (with Dr. Feliz) Diet: Regular Addtl Attending Provider Instructions: Medication Instructions: Your condition is typically treated with an anticoagulant. Anticoagulants will thin your blood to help prevent new clots. * You should take her medication exactly as directed. * Never skip a dose. * Never take a double dose. If you miss a dose, take it as soon as you remember. Call your Primary Care doctor if you experience any of the following: * Swelling or Pain in your leg * Sudden, continuous pain deep in a muscle * Pain that worsens when you are active or when you stand still for a long time * Chest Pain * Sudden Shortness of Breath * Rapid or pounding heart beat * Fainting * Dizziness * Cough with blood or bloody sputum * Sweating more than normal * Bruises * Heavy or uncontrolled bleeding * Blood in your urine, stool or vomit * Black or tarry stools Caring for Your Self at Home: * Avoid sitting, standing or lying down for long periods without moving your legs and feet * When traveling by car, stop to get out and move around at least once every 3 hours * On long airplane, train or bus rides, get up and move around when possible * If you can't get up, wiggle your toes and tighten your calves to keep your blood moving Follow Up: It is important for you to keep your follow up appointments with your medical provider. Addtl Engineering Clerk Provider Instructions: For one week of discharge no intentional exercise, no lifting more than 10 pounds no excessive bending or stooping elevated legs when not standing, try to minimize standing Pending Studies at Discharge: No Stand-Alone Forms: My [facility], Smoking Cessation Medications and DC Order Prescriptions: New Eliquis 5 mg tablet 5 mg PO UD Qty: 60 5RF Rx Instructions: 10 mg bid up until 12/24/23 then 5 mg bid thereafter Continued cholecalciferol (vitamin D3) 25 mcg (1,000 unit) capsule 25 mcg PO DAILY Qty: 30 5RF donepezil 10 mg tablet 10 mg PO DAILY Qty: 90 3RF aspirin 81 mg capsule 81 mg PO DAILY PRN [employer] nutrition pack PO DAILY alendronate [Fosamax] 70 mg tablet 70 mg PO ONCE 7 Days Qty: 12 4RF Rx Instructions: Take 1 tablet once weekly with 8 oz of plain water. Do not eat or drink anything else for 1 hour after taking. omeprazole 20 mg capsule,delayed release(DR/EC) 20 mg PO DAILY PRN multivitamin tablet 1 tab PO QAM omega-3 acid ethyl esters 1 gram capsule 1 cap PO BID timolol maleate 0.25 % drops 1 drops OP Q12H Patient Comments: left eye acetaminophen [Tylenol Arthritis Pain] 650 mg Tablet Extended Release 650 mg PO Q12H PRN (Reason: Pain) Discharge Orders: Discharge Order (Routine); Ordered 12/18/23 Ordered By: Declan Chahal/Other Patient Handouts: Apixaban Oral Tablet Admission Data Admit Date/Time: 12/16/23 19:40 Attending Provider: Declan Zheng Admit Provider: Sav Boland Primary Care Provider: Romina Palomo Other Providers: Sav Boland Other Interventions: Discharge Summary Assessment (RN) Last Done: 12/18/23 11:34 Hospital Stay Data Consultations 12/16/23 18:49 ED Decision to Admit Stat Diagnostic Imagining Performed 12/16/23 18:04 CT head/brain wo con Stat 12/16/23 18:13 CT angio chest PE protocol Stat 12/17/23 US venous doppler LE BI Stat Pending Results Patient Have Any Pending Studies at Discharge: No Discharge Instructions Given to Patient (Per Discharging Provider) Medication Instructions: Your condition is typically treated with an anticoagulant. Anticoagulants will thin your blood to help prevent new clots. * You should take her medication exactly as directed. * Never skip a dose. * Never take a double dose. If you miss a dose, take it as soon as you remember. Call your Primary Care doctor if you experience any of the following: * Swelling or Pain in your leg * Sudden, continuous pain deep in a muscle * Pain that worsens when you are active or when you stand still for a long time * Chest Pain * Sudden Shortness of Breath * Rapid or pounding heart beat * Fainting * Dizziness * Cough with blood or bloody sputum * Sweating more than normal * Bruises * Heavy or uncontrolled bleeding * Blood in your urine, stool or vomit * Black or tarry stools Caring for Your Self at Home: * Avoid sitting, standing or lying down for long periods without moving your legs and feet * When traveling by car, stop to get out and move around at least once every 3 hours * On long airplane, train or bus rides, get up and move around when possible * If you can't get up, wiggle your toes and tighten your calves to keep your blood moving Follow Up: It is important for you to keep your follow up appointments with your medical provider. Total Time Total Time Spent Total Time Spent (In Minutes): It required greater than 30 minutes to prepare this patient for discharge. Coding Level of Care Code 19875 INP/OBS DISCH >30 MIN Diagnoses Acute saddle pulmonary embolism I26.92 History of DVT (deep vein thrombosis) Z86.718
== END 2023-12-18 13:36 | disposition home or self-care (01) | DRG 176 ==
LOC: ED 15:55 → SUATTDRO 19:40 → 2E 19:40